=== PATIENT | male | born 1955 | race Caucasian/White ===

== ENCOUNTER 2019-03-04 11:13 | Emergency (ER) | payer OTHER ==
--- NOTE | 2019-03-04 12:16 | EKG ---
Test Date: 2019-03-04 Test Time: 11:29:49 Human Development Professor: ADI MEASUREMENT RESULTS: Intervals: Rate: 66 WV: 196 QRSD: 114 QT: 404 QTc: 423 [place]: P: 63 WV: 196 QRS: 86 T: 65 INTERPRETIVE STATEMENTS: Sinus rhythm with premature atrial complexes Otherwise normal ECG No previous ECG available for comparison Electronically Signed On 03-04-19 12:15:34 CDT by Garry Maciel
[2019-03-04 12:26] LABS: Absolute Lymphocytes (CBC) 1.6 K/uL (0.7-4.9); Absolute Monocytes 0.4 K/uL (0.1-1.3); Absolute Neutrophil 3.8 K/uL (1.8-8.0); Basophils % 1.3 % (0-1.3); Eosinophils % 0.5 % (0-4.4); Lymphocytes % 27.3 % (15.3-44.8); MPV 8.6 fL (7.6-11.3); RBC Red Blood Cell Count 5.13 M/uL (4.33-5.43)
[2019-03-04 12:40] LABS: Protime INR 1.09
--- NOTE | 2019-03-04 12:43 | RAD REPORT ---
EXAM DESCRIPTION: RAD - Chest Single View - 03/04/2019 12:36 pm CLINICAL HISTORY: CHEST PAIN Chest pain. COMPARISON: No comparisons FINDINGS: Portable technique limits examination quality. The lungs are grossly clear. The heart is normal in size. No displaced fractures. IMPRESSION: No acute intrathoracic process suspected.
[2019-03-04 12:46] LABS: ALT/SGPT 25 U/L (12-78); AST/SGOT 10 U/L (15-37); Albumin 4.4 g/dL (3.4-5.0); Alkaline Phosphatase 72 U/L (45-117); BUN Blood Urea Nitrogen 8 mg/dL (7-18); Bicarbonate 28 mmol/L (21-32); Bilirubin Direct 0.2 mg/dL (0-0.2); Bilirubin Total 0.5 mg/dL (0.2-1.0); Glucose Level 89 mg/dL (74-106); Magnesium 2.4 mg/dL (1.8-2.4); NT PRO-BNP 28 pg/mL (<125); Potassium 4.2 mmol/L (3.5-5.1); Protein, Total 7.2 g/dL (6.4-8.2); Sodium Level 135 mmol/L (136-145); Troponin (Emerg Dept Use Only) < 0.02 ng/mL (0.0-0.045)
--- NOTE | 2019-03-04 14:57 | EKG ---
Test Date: 2019-03-04 Test Time: 14:30:07 Auto Damage Insurance Appraiser: SHADE MEASUREMENT RESULTS: Intervals: Rate: 58 MN: 208 QRSD: 108 QT: 436 QTc: 428 [place]: P: 66 MN: 208 QRS: 76 T: 62 INTERPRETIVE STATEMENTS: Sinus bradycardia Otherwise normal ECG Compared to ECG 03/04/2019 11:29:49 Sinus rhythm no longer present Atrial premature complex(es) no longer present Electronically Signed On 03-04-19 14:56:11 CDT by Garry Maciel
--- NOTE | 2019-03-04 15:15 | EDPHYS ---
Physician Documentation [facility] Name: Karri Hill Age: 63 yrs Sex: Male : 1955 Arrival Date: 03/04/2019 Time: 11:15 Bed 13 Private MD: ED Physician Benedicto Rae HPI: 03/04 12:06 This 63 yrs old Male presents to ER via Ambulatory with complaints of Chest snw Tightness, Palpitations. 12:06 Onset: The symptoms/episode began/occurred gradually, and became persistent. Associated snw signs and symptoms: Pertinent positives: chest pain, shortness of breath, palpitations. Modifying factors: The patient symptoms are alleviated by nothing, the patient symptoms are aggravated by nothing. The patient has not experienced similar symptoms in the past, but family has similar symptoms, spouse. Pt started Wellbutrin and Adderall recently (2 weeks ago), has been stressed as his had some heart problems a few weeks ago. Pt has changed to a heart healthy diet and started above medications. When s/s of palpitations and SOB began Monday, pt stopped these medications and states the s/s he is having did not resolve.. Historical: - Allergies: 11:18 PENICILLINS; hj - PMHx: 11:18 None; hj - PSHx: 11:18 LAMINECTOMY; FEMUR SURGERY; Knee surgery; ANKLE SURGERY; WRIST SURGERY; hj - Immunization history:: Adult Immunizations up to date. - Social history:: Smoking status: Patient/guardian denies using tobacco, Patient/guardian denies using alcohol. - Ebola Screening: : Patient negative for fever greater than or equal to 101.5 degrees Fahrenheit, and additional compatible Ebola Virus Disease symptoms Patient denies exposure to infectious person Patient denies travel to an Ebola-affected area in the 21 days before illness onset. ROS: 12:06 Constitutional: Negative for fever, chills, and weight loss, Eyes: Negative for injury, snw pain, redness, and discharge, ENT: Negative for injury, pain, and discharge, Neck: Negative for injury, pain, and swelling. 12:06 Abdomen/GI: Negative for abdominal pain, nausea, vomiting, diarrhea, and constipation, Back: Negative for injury and pain, : Negative for injury, bleeding, discharge, and swelling, MS/Extremity: Negative for injury and deformity, Skin: Negative for injury, rash, and discoloration, Neuro: Negative for headache, weakness, numbness, tingling, and seizure. 12:06 Cardiovascular: Positive for chest pain, palpitations. 12:06 Respiratory: Positive for shortness of breath, at rest. Exam: 12:06 Constitutional: This is a well developed, well nourished patient who is awake, alert, snw and in no acute distress. Head/Face: Normocephalic, atraumatic. Eyes: Pupils equal round and reactive to light, extra-ocular motions intact. Lids and lashes normal. Conjunctiva and sclera are non-icteric and not injected. Cornea within normal limits. Periorbital areas with no swelling, redness, or edema. ENT: Nares patent. No nasal discharge, no septal abnormalities noted. Tympanic membranes are normal and external auditory canals are clear. Oropharynx with no redness, swelling, or masses, exudates, or evidence of obstruction, uvula midline. Mucous membranes moist. Lower teeth with copenhagen type dip Neck: Trachea midline, no thyromegaly or masses palpated, and no cervical lymphadenopathy. Supple, full range of motion without nuchal rigidity, or vertebral point tenderness. No Meningismus. Chest/axilla: Normal chest wall appearance and motion. Nontender with no deformity. No lesions are appreciated. Cardiovascular: Regular rate and rhythm with a normal S1 and S2. No gallops, murmurs, or rubs. Normal PMI, no JVD. No pulse deficits. Respiratory: Lungs have equal breath sounds bilaterally, clear to auscultation and percussion. No rales, rhonchi or wheezes noted. No increased work of breathing, no retractions or nasal flaring. Abdomen/GI: Soft, non-tender, with normal bowel sounds. No distension or tympany. No guarding or rebound. No evidence of tenderness throughout. Back: No spinal tenderness. No costovertebral tenderness. Full range of motion. Skin: Warm, dry with normal turgor. Normal color with no rashes, no lesions, and no evidence of cellulitis. MS/ Extremity: Pulses equal, no cyanosis. Neurovascular intact. Full, normal range of motion. Neuro: Awake and alert, GCS 15, oriented to person, place, time, and situation. Cranial nerves II-XII grossly intact. Motor strength 5/5 in all extremities. Sensory grossly intact. Cerebellar exam normal. Normal gait. 12:06 Psych: Behavior/mood is anxious, Affect is nervous. Vital Signs: 11:19 BP 131 / 87; Pulse 71; Resp 18; Temp 97.9(O); Pulse Ox 99% on R/A; Weight 83.91 kg; hj Height 5 ft. 10 in. (177.80 cm); Pain 3/10; 12:36 BP 109 / 83; Pulse 61; Resp 15; Pulse Ox 100% on R/A; ae4 13:37 BP 117 / 87; Pulse 55; Resp 16; Pulse Ox 98% on R/A; ae4 14:49 BP 121 / 84; Pulse 58; Resp 15; Pulse Ox 100% on R/A; ae4 15:30 BP 128 / 95; Pulse 61; Resp 16; Pulse Ox 100% on R/A; ae4 11:19 Body Mass Index 26.54 (83.91 kg, 177.80 cm) hj MDM: 11:57 Patient medically screened. snw 15:16 Data reviewed: vital signs, nurses notes. Data interpreted: Pulse oximetry: on room air snw is 100 %. Interpretation: normal. Counseling: I had a detailed discussion with the patient and/or guardian regarding: the historical points, exam findings, and any diagnostic results supporting the discharge/admit diagnosis, the presence of at least one elevated blood pressure reading (>120/80) during this emergency department visit, lab results, radiology results, the need for outpatient follow up, to return to the emergency department if symptoms worsen or persist or if there are any questions or concerns that arise at home. Special discussion: Based on the patient's history, exam, and Dx evaluation, there is no indication for emergent intervention or inpatient Tx. It is understood by the patient/guardian that if the Sx's persist or worsen they need to return immediately for re-evaluation. Based on the history and exam findings, there is no indication for further emergent testing or inpatient evaluation. I discussed with the patient/guardian the need to see the primary care provider for further evaluation of the symptoms. 03/04 12:05 Order name: Basic Metabolic Panel snw 03/04 12:05 Order name: CBC with Diff snw 03/04 12:05 Order name: LFT's snw 03/04 12:05 Order name: Magnesium [facility] 03/04 12:05 Order name: NT PRO-BNP [facility] 03/04 12:05 Order name: PT-INR [facility] 03/04 12:05 Order name: Troponin (emerg Dept Use Only) [facility] 03/04 12:27 Order name: CBC with Automated Diff; Complete Time: 12:35 EDMS 03/04 12:48 Order name: Basic Metabolic Panel; Complete Time: 12:47 EDMS 03/04 12:48 Order name: Liver (Hepatic) Function; Complete Time: 12:47 EDMS 03/04 12:48 Order name: Troponin (Emerg Dept Use Only); Complete Time: 12:47 EDMS 03/04 12:48 Order name: NT PRO-BNP; Complete Time: 12:47 EDMS 03/04 12:48 Order name: Magnesium; Complete Time: 12:47 EDMS 03/04 12:50 Order name: Protime (+INR); Complete Time: 13:06 EDMS 03/04 11:17 Order name: EKG - Nurse/Tech; Complete Time: 11:38 03/04 12:05 Order name: XRAY Chest (1 view) [facility] 03/04 12:05 Order name: EKG; Complete Time: 12:07 w 03/04 12:05 Order name: Cardiac monitoring; Complete Time: 12:23 w 03/04 12:05 Order name: IV Saline Lock; Complete Time: 12:23 w 03/04 12:05 Order name: Labs collected and sent; Complete Time: 12:23 w 03/04 12:05 Order name: O2 Per Protocol; Complete Time: 12:23 w 03/04 12:05 Order name: O2 Sat Monitoring; Complete Time: 12:24 w 03/04 12:48 Order name: RAD; Complete Time: 12:47 EDMS 03/04 14:20 Order name: Troponin (emerg Dept Use Only) [facility] 03/04 14:20 Order name: EKG; Complete Time: 14:21 w 03/04 15:11 Order name: Troponin (Emerg Dept Use Only); Complete Time: 15:11 EDMS Administered Medications: No medications were administered Disposition: 03/05 07:36 Co-signature as Attending Physician, Benedicto Rae MD I agree with the assessment and tamar plan of care. Disposition: 03/04/19 15:13 Discharged to Home. Impression: Chest pain, unspecified, Palpitations. - Condition is Stable. - Discharge Instructions: Nonspecific Chest Pain, Aspirin and Your Heart, Rehydration, Adult. - Work release form, Medication Reconciliation Form, Thank You Letter, Antibiotic Education, Prescription Opioid Use form. - Follow up: Private Physician; When: 1 week; Reason: Recheck today's complaints, Continuance of care, Re-evaluation by your physician. Follow up: Emergency Department; When: As needed; Reason: Worsening of condition. Signatures: Dispatcher [employer] EDMS Benedicto Rae MD MD cha Therrien, Shelly, SPINNING ROOM WORKER-C SPINNING ROOM WORKER-Csnw Zain Guzman, RN RN Juan Brizuela RN RN ae4 Corrections: (The following items were deleted from the chart) 03/04 15:31 15:13 03/04/2019 15:13 Discharged to Home. Impression: Chest pain, unspecified; ae4 Palpitations. Condition is Stable. Forms are Medication Reconciliation Form, Thank You Letter, Antibiotic Education, Prescription Opioid Use. Follow up: Private Physician; When: 1 week; Reason: Recheck today's complaints, Continuance of care, Re-evaluation by your physician. Follow up: Emergency Department; When: As needed; Reason: Worsening of condition. snw
--- NOTE | 2019-03-04 15:15 | ER ---
Nurse's Notes [facility] Name: Karri Hill Age: 63 yrs Sex: Male : 1955 Arrival Date: 03/04/2019 Time: 11:15 Bed 13 Private MD: Diagnosis: Chest pain, unspecified;Palpitations Presentation: 03/04 11:17 Presenting complaint: Patient states: i started having chest tightness and palpitations hj since Monday; denies radiating pain and denies N/V; reports SOB;. Transition of care: patient was not received from another setting of care. Onset of symptoms was March 04, 2019. Risk Assessment: Do you want to hurt yourself or someone else? Patient reports no desire to harm self or others. Initial Sepsis Screen: Does the patient meet any 2 criteria? No. Patient's initial sepsis screen is negative. Does the patient have a suspected source of infection? No. Patient's initial sepsis screen is negative. Care prior to arrival: None. 11:17 Method Of Arrival: Ambulatory 11:17 Acuity: AGUSTÍN 3 hj Triage Assessment: 11:18 General: Appears in no apparent distress. uncomfortable, Behavior is calm, cooperative, hj appropriate for age. Pain: Complains of pain in chest. Cardiovascular: Reports chest pain. Historical: - Allergies: 11:18 PENICILLINS; hj - PMHx: 11:18 None; hj - PSHx: 11:18 LAMINECTOMY; FEMUR SURGERY; Knee surgery; ANKLE SURGERY; WRIST SURGERY; hj - Immunization history:: Adult Immunizations up to date. - Social history:: Smoking status: Patient/guardian denies using tobacco, Patient/guardian denies using alcohol. - Ebola Screening: : Patient negative for fever greater than or equal to 101.5 degrees Fahrenheit, and additional compatible Ebola Virus Disease symptoms Patient denies exposure to infectious person Patient denies travel to an Ebola-affected area in the 21 days before illness onset. Screenin:19 Abuse screen: Denies threats or abuse. Denies injuries from another. Nutritional hj screening: No deficits noted. Tuberculosis screening: No symptoms or risk factors identified. Fall Risk None identified. Assessment: 11:19 Pain: Pain does not radiate. Pain began 2-3 days ago. hj 12:00 General: Appears comfortable, Behavior is cooperative, anxious. Pain: Complains of pain ae4 in chest. Neuro: Level of Consciousness is awake, alert, obeys commands, Oriented to person, place, time, situation, Appropriate for age. Cardiovascular: Heart tones S1 S2 present Patient's skin is warm and dry. Rhythm is regular. Cardiovascular: Reports palpitations, shortness of breath. Respiratory: Airway is patent Respiratory effort is even, unlabored, Respiratory pattern is regular, symmetrical, Breath sounds are clear bilaterally. GI: Abdomen is round. : No signs and/or symptoms were reported regarding the genitourinary system. EENT: No signs and/or symptoms were reported regarding the EENT system. Derm: Skin is pink, warm \T\ dry. Musculoskeletal: No signs and/or symptoms reported regarding the musculoskeletal system. 13:00 Reassessment: Patient appears in no apparent distress at this time. Patient and/or ae4 family updated on plan of care and expected duration. Pain level reassessed. Updated on plan of care. Patient states feeling better. 14:48 Reassessment: Patient appears in no apparent distress at this time. Patient and/or ae4 family updated on plan of care and expected duration. Pain level reassessed. Patient denies pain at this time. Vital Signs: 11:19 BP 131 / 87; Pulse 71; Resp 18; Temp 97.9(O); Pulse Ox 99% on R/A; Weight 83.91 kg; hj Height 5 ft. 10 in. (177.80 cm); Pain 3/10; 12:36 BP 109 / 83; Pulse 61; Resp 15; Pulse Ox 100% on R/A; ae4 13:37 BP 117 / 87; Pulse 55; Resp 16; Pulse Ox 98% on R/A; ae4 14:49 BP 121 / 84; Pulse 58; Resp 15; Pulse Ox 100% on R/A; ae4 15:30 BP 128 / 95; Pulse 61; Resp 16; Pulse Ox 100% on R/A; ae4 11:19 Body Mass Index 26.54 (83.91 kg, 177.80 cm) ED Course: 11:15 Patient arrived in ED. hj 11:18 Triage completed. hj 11:19 Arm band placed on left wrist. hj 11:19 Patient has correct armband on for positive identification. Placed in gown. Bed in low hj position. Call light in reach. Side rails up X 1. Adult w/ patient. air sampling and monitoring on. Pulse ox on. NIBP on. 11:19 Patient maintains SpO2 saturation greater than 95% on room air. hj 11:32 EKG done, by shop technician. reviewed by Yariel Michael MD. at1 11:57 Sherine Tapia [facility]-C [facility]. snw 11:57 Benedicto Rae MD is Attending Physician. snw 12:05 Juan Brizuela, RN is Primary Nurse. ae4 12:24 Inserted saline lock: 20 gauge in right antecubital area, using aseptic technique. ae4 Blood collected. 12:35 X-ray completed. Portable x-ray completed in exam room. Patient tolerated procedure mh1 well. 15:31 No provider procedures requiring assistance completed. IV discontinued, intact, ae4 bleeding controlled, No redness/swelling at site. Pressure dressing applied. Administered Medications: No medications were administered Outcome: 15:13 Discharge ordered by . snw 15:30 Discharged to home ambulatory, with significant other. ae4 15:30 Condition: stable 15:30 Discharge instructions given to patient, Instructed on discharge instructions, follow up and referral plans. Demonstrated understanding of instructions. 15:31 Patient left the ED. ae4 Signatures: Sherine Tapia FNP-C FNP-Csnw Arleen Bianchi mh1 Lisa Silva, boilermaker's assistant EKG Tat1 Zain Guzman RN RN hj Juan Brizuela, RN RN ae4
== END 2019-03-04 15:31 | disposition home or self-care (01) ==
LOC: ER 11:13
DX: R00.2 Palpitations (principal); Z88.0 Allergy status to penicillin
CPT/HCPCS: 36415; 71045; 80048; 80076; 83735; 83880; 84484; 85025; 85610; 93005; 99285